=== PATIENT | female | born 1985 | race African-American/Black ===

== ENCOUNTER 2022-03-27 12:25 | Inpatient (IN) ==
[2022-03-27] MEDS ORDERED: ONDANSETRON 4 MG/2 ML VIAL IV PRN (12:49)
[2022-03-27] MEDS ORDERED: CARBOPROST TROMETHAMINE 250 MCG/ML AMP IM PRN (12:49)
[2022-03-27] MEDS ORDERED: BUTORPHANOL 1 MG/ML VIAL IV PRN (12:49)
[2022-03-27] MEDS ORDERED: TRANEXAMIC ACID 1,000 MG in SODIUM CHLORIDE 0.9% 100 ML IV PRN (12:49)
[2022-03-27] MEDS ORDERED: METHYLERGONOVINE 0.2 MG/1 ML AMP IM PRN (12:49)
[2022-03-27] MEDS ORDERED: LACTATED RINGERS 500 ML IV PRN (12:49)
[2022-03-27] MEDS ORDERED: OXYTOCIN/LR 20 UNIT/1,000 ML BAG IV ONE ×2 (12:49→22:30)
[2022-03-27] MEDS ORDERED: miSOPROStoL 200 MCG TABLET RECTAL PRN (12:49)
[2022-03-27] MEDS: LACTATED RINGERS 1,000 ML IV PRN ×2 (12:50→14:35)
[2022-03-27] MEDS ORDERED: OXYTOCIN/LR 30 UNIT/1,000 ML BAG IV ONE (12:51)
[2022-03-27] MEDS ORDERED: PROMETHAZINE 25 MG/1 ML VIAL IM ONE (12:52)
[2022-03-27] MEDS ORDERED: ONDANSETRON 4 MG/2 ML VIAL IV ONE (12:52)
[2022-03-27] MEDS ORDERED: NALOXONE 0.4 MG/ML VIAL IV PRN (12:52)
[2022-03-27] MEDS ORDERED: hydrOXYzine HCL 25 MG/1 ML VIAL IM PRN (12:52)
[2022-03-27] MEDS ORDERED: diphenhydrAMINE 50 MG/1 ML VIAL IV PRN ×2 (12:52)
[2022-03-27] MEDS ORDERED: ePHEDrine 50 MG/ML VIAL IV PRN (12:52)
[2022-03-27] MEDS ORDERED: CITRIC ACID/SODIUM CITRATE 30 ML UDCUP PO ONE (12:53)
[2022-03-27] MEDS ORDERED: LACTATED RINGERS 1,000 ML IV ONE (12:53)
[2022-03-27] MEDS ORDERED: FAMOTIDINE 20 MG/2 ML VIAL IV ONE (12:53)
[2022-03-27] MEDS ORDERED: fentaNYL 2 MCG/ROPIV 0.2% EPID 100 ML EPIDURAL SCH (13:00)
[2022-03-27 13:17] LABS: Basophils % 0.2 % (0.0-0.8); Eosinophils # 0.1 10*3/uL (0.0-0.87); Eosinophils % 0.9 % (0.00-10.9); Hematocrit 29.4 VOL% (35.7-47.0); Hemoglobin 9.4 GM/DL (12.0-16.0); Immature Granulocytes % 3.8 %; Immature Granulocytes Absolute 0.46 #; Lymphocytes # 2.3 10*3/uL (1.4-4.0); Lymphocytes % 18.6 % (21.3-54.2); Mean Corpuscular Volume 92.2 FL (87-102); Mean Platelet Volume 11.2 FL (9.6-12.0); Monocytes # 1.2 10*3/uL (0.11-0.8); Neutrophils % 66.5 % (38.7-73.9); Platelet Count 257 T/CUMM (130-400); Red Blood Count 3.19 MC/CUMM (3.8-5.5); Red Cell Distribution Width 13.9 % (9.3-17.3); White Blood Count 12.1 T/CUMM (4-12)
[2022-03-27 13:38] LABS: Albumin 2.6 G/DL (3.4-5.0); Bilirubin,Total 0.7 MG/DL (0.20-1.00); Calcium 8.9 MG/DL (8.5-10.1); Osmolality,Calculated 276.4 MOS/KG (273-304); Potassium 3.4 MMOL/L (3.5-5.1)
[2022-03-27 15:28] LABS: Bacteria,Urine Occasional /HPF (Few); Mucus,Urine Occasional /LPF (Occasional); RBC,Urine 42 /HPF (0-4); Squamous Epithelial Cell,Urine Occasional /HPF (0-10)
[2022-03-27 15:29] LABS: Protein,Urine Trace mg/dL (Negative); Urine Appearance Clear (Clear); Urine Color Yellow (Yellow); Urine Specific Gravity 1.025 (1.001-1.035); Urine pH 6.5 (4.5-8.0)
[2022-03-27 15:30] LABS: Bilirubin,Urine Negative (Negative); Blood, Urine Moderate mg/dL (Negative); Glucose,Urine (UA) Negative (Negative); Ketones,Urine >160 mg/dL (Negative); Nitrite,Urine Negative (Negative); Urine Urobilinogen > 8.0 eU/dL (<2.0)
[2022-03-27 19:05] LABS: Cord Venous Blood PCO2 36.7 MMHG; Cord Venous Blood PO2 37.1
[2022-03-27] MEDS ORDERED: BISACODYL 10 MG SUPP RECTAL PRN (21:29)
[2022-03-27] MEDS ORDERED: ACETAMINOPHEN 325 MG TABLET PO PRN (21:29)
[2022-03-27] MEDS ORDERED: IBUPROFEN 800 MG TABLET PO PRN (21:29)
[2022-03-27] MEDS ORDERED: BENZOCAINE 20%/MENTHOL 0.5% SPRAY 56 GM CAN TOP PRN (21:29)
[2022-03-27] MEDS ORDERED: LANOLIN 50% CREAM 0.3 OZ TUBE TOP PRN (21:29)
[2022-03-27] MEDS ORDERED: WITCH HAZEL PADS 100/JAR TOP PRN (21:29)
[2022-03-27] MEDS ORDERED: oxyCODONE/ACETAMINOPHEN 5-325 MG TABLET PO PRN (21:29)
[2022-03-27] MEDS ORDERED: HYDROCORTISONE 2.5% RECTAL CREAM 30 GM TUBE TOP PRN (21:29)
[2022-03-27] MEDS ORDERED: RHO(D) IMMUNE GLOBULIN 300 MCG SYRINGE IM ONE (22:30)
[2022-03-27] MEDS ORDERED: DIPH/TET/ACEL PERT BOOSTER VACCINE 0.5 ML VIAL IM ONE (22:30)
[2022-03-27] MEDS ORDERED: MEASLES/MUMPS/RUBELLA VACCINE 0.5 ML VIAL SUBCUT ONE (22:30)
[2022-03-27] MEDS: oxyCODONE/ACETAMINOPHEN 5-325 MG TABLET PO PRN (23:03)
[2022-03-28 05:19] LABS: Basophils % 0.2 % (0.0-0.8); Eosinophils # 0.1 10*3/uL (0.0-0.87); Eosinophils % 0.3 % (0.00-10.9); Hematocrit 27.4 VOL% (35.7-47.0); Hemoglobin 8.7 GM/DL (12.0-16.0); Immature Granulocytes % 1.8 %; Immature Granulocytes Absolute 0.29 #; Lymphocytes # 2.1 10*3/uL (1.4-4.0); Lymphocytes % 13.1 % (21.3-54.2); Mean Corpuscular HGB Conc 31.8 GM/DL (32-36); Mean Corpuscular Volume 92.9 FL (87-102); Mean Platelet Volume 11.3 FL (9.6-12.0); Monocytes # 2.1 10*3/uL (0.11-0.8); Monocytes % 12.6 % (1.7-12.7); Platelet Count 232 T/CUMM (130-400); Red Blood Count 2.95 MC/CUMM (3.8-5.5); Red Cell Distribution Width 13.9 % (9.3-17.3); White Blood Count 16.2 T/CUMM (4-12)
[2022-03-28] MEDS: DOCUSATE SODIUM 100 MG CAPSULE PO SCH ×4 (06:47→20:26)
[2022-03-28] MEDS: FERROUS SULFATE 325 MG TABLET PO SCH ×2 (14:09→20:26)
[2022-03-28] MEDS: oxyCODONE/ACETAMINOPHEN 5-325 MG TABLET PO PRN (23:15)
[2022-03-29 08:35] VITALS: BP 117/72
[2022-03-29] MEDS: DOCUSATE SODIUM 100 MG CAPSULE PO SCH (09:17)
[2022-03-29] MEDS: FERROUS SULFATE 325 MG TABLET PO SCH (09:17)
[2022-03-29] MEDS: oxyCODONE/ACETAMINOPHEN 5-325 MG TABLET PO PRN (09:18)
[2022-03-29] MEDS ORDERED: DIPH/TET/ACEL PERT BOOSTER VACCINE 0.5 ML VIAL IM ONE (10:38)
== END 2022-03-29 12:15 | disposition home or self-care (01) | DRG 807 ==
LOC: N.LDOUT 12:25 → N.LD 12:31 → N.OB 21:29
PROVIDERS: ADMIT Obstetrics & Gynecology; ATTEND Obstetrics & Gynecology